=== PATIENT | female | born 1975 | race Caucasian/White ===

== ENCOUNTER 2020-06-17 06:08 | Emergency (ER) | payer MEDICAID ==
[~2020-06-17] VITALS: Ht 167.6 cm; Wt 75.0 kg
[2020-06-17] MEDS ORDERED: LISI-600 PO (07:48)
[2020-06-17] MEDS ORDERED: QUET25TA PO (07:48)
[2020-06-17] MEDS ORDERED: GABA800T11 PO (07:48)
[2020-06-17] MEDS ORDERED: IBUP-1985 PO (07:48)
[2020-06-17] MEDS ORDERED: ESCI10TA PO (07:48)
[2020-06-17] MEDS ORDERED: AMLO5TAB PO (07:48)
[2020-06-17] MEDS ORDERED: POTA20TA19 PO (07:48)
[2020-06-17] MEDS ORDERED: ESCI20TA PO (07:48)
[2020-06-17] MEDS ORDERED: FURO-150 PO (07:48)
[2020-06-17 07:57] LABS: EOSINOPHILS # (AUTO) 0.3 X10'3 (0-0.9); HEMOGLOBIN 13.9 g/dl (12.0-16.0); RED BLOOD COUNT 4.47 X10'6 (4.20-5.60)
[2020-06-17 07:58] LABS: URINE HCG NEGATIVE (NEG)
[2020-06-17 07:58] LABS: BASOPHILS # (AUTO) 0.1 X10'3 (0-0.2); BASOPHILS % (AUTO) 0.8 % (0-1); EOSINOPHILS % (AUTO) 3.6 % (0-6); HEMATOCRIT 40.6 % (35.0-45.0); LYMPHOCYTES # (AUTO) 2.2 X10'3 (1.1-4.8); LYMPHOCYTES % (AUTO) 26.8 % (21-51); MEAN CORPUSCULAR HGB CONC 34.1 g/dL (33.0-36.5); MEAN CORPUSCULAR VOLUME 90.7 FL (78-98); MEAN PLATELET VOLUME 8.4 FL (7.4-10.4); MONOCYTES # (AUTO) 0.8 X10'3 (0-0.9); MONOCYTES % (AUTO) 9.5 % (2-12); NEUTROPHILS # (AUTO) 4.9 X10'3 (1.8-7.7); NEUTROPHILS % (AUTO) 59.3 % (42-75); PLATELET COUNT 371 X10'3 (140-440); RED CELL DISTRIBUTION WIDTH 13.2 % (11.5-14.5); WHITE BLOOD COUNT 8.2 X10'3 (4.5-11.0)
--- NOTE | 2020-06-17 07:59 | NUR ---
breaking primary RN, pt is asleep, no needs at this time, caregiver present Addendum: 06/17/20 at 0801 by [email or web address] *mother present
[2020-06-17 08:04] LABS: CLARITY,URINE CLEAR (Clear); COLOR,URINE YELLOW (Yellow); GLUCOSE, URINE NEGATIVE (Neg); KETONES,URINE NEGATIVE (Neg); LEUKOCYTE ESTERASE ,URINE NEGATIVE (Neg); NITRITES, URINE NEGATIVE (Neg); OCCULT BLOOD,URINE NEGATIVE (Neg); PROTEIN,URINE NEGATIVE (Neg); UROBILINOGEN,URINE 0.2 E.U/dL (0.2-1.0)
[2020-06-17 08:11] LABS: URINE AMPHETAMINE SCREEN POSITIVE (Neg); URINE BARBITUATE SCREEN NEGATIVE (Neg); URINE BENZODIAZEPINES SCREEN NEGATIVE (Neg); URINE CANNABINOID SCREEN POSITIVE (Neg); URINE COCAINE SCREEN NEGATIVE (Neg); URINE METHADONE SCREEN NEGATIVE (Neg); URINE OPIATE SCREEN NEGATIVE (Neg); URINE PHENCYCLIDINE SCREEN NEGATIVE (Neg)
[2020-06-17 08:12] LABS: UA COLLECTION TYPE NON-SPECIFIED
[2020-06-17 08:16] LABS: ALANINE AMINOTRANSFERASE 21 U/L (12-78); ALBUMIN 3.7 G/DL (3.4-5.0); ALKALINE PHOSPHATASE 76 IU/L (46-116); ASPARTATE AMINO TRANSFERASE 13 U/L (10-37); BILIRUBIN,TOTAL 0.3 MG/DL (0.1-1.0); BLOOD UREA NITROGEN 13 MG/DL (7-18); CALCIUM 8.8 MG/DL (8.5-10.1); CREATININE 0.81 MG/DL (0.40-0.90); ETHANOL < 0.010 GM/DL (0.0-0.010); GLUCOSE 99 MG/DL (70-104); TOTAL CARBON DIOXIDE 31.9 MMOL/L (24-32); TOTAL PROTEIN 7.5 G/DL (6.4-8.2); eGFR 77 ML/MIN
[2020-06-17 08:25] LABS: ANION GAP 5 (8-16); CHLORIDE 103 MMOL/L (99-107); POTASSIUM 3.4 MMOL/L (3.5-5.1); SODIUM 140 MMOL/L (135-145)
[2020-06-17] MEDS ORDERED: acetaminophen 325mg tablet PO ONE (09:00)
--- NOTE | 2020-06-17 09:29 | NUR ---
Brought Tylenol for patient's CARR, states CARR went away. Resting in bed with eyes closed
[2020-06-17] MEDS ORDERED: TRAZ-251 PO (10:12)
[2020-06-17] MEDS ORDERED: BUSP5TAB3 PO (10:12)
[2020-06-17 10:26] VITALS: BP 117/86
== END 2020-06-17 10:28 | disposition home or self-care (01) ==
LOC: ER 06:09
DX: F41.9 Anxiety disorder, unspecified (principal); R44.0 Auditory hallucinations; Z88.8 Allergy status to other drugs, medicaments and biological substances; Z79.899 Other long term (current) drug therapy
CPT/HCPCS: 36415; 80053; 80305; 80320; 81003; 81025; 84443; 85025; 99285

== ENCOUNTER 2020-07-02 23:18 | Emergency (ER) | payer MEDICAID ==
[~2020-07-02] VITALS: Ht 167.6 cm; Wt 72.0 kg
[~2020-07-02 23:18] MED LIST: AMLO5TAB PO; BUSP5TAB3 PO; ESCI10TA PO; ESCI20TA PO; FURO-150 PO; GABA800T11 PO; IBUP-1985 PO; LISI-600 PO; POTA20TA19 PO; QUET25TA PO; TRAZ-251 PO
--- NOTE | 2020-07-02 23:33 | NUR ---
pain right ankle was seen at [facility] dorsal tenderness. expresses anxiety and paranoia to
[2020-07-02 23:51] LABS: BASOPHILS # (AUTO) 0.1 X10'3 (0-0.2); EOSINOPHILS # (AUTO) 0.2 X10'3 (0-0.9); EOSINOPHILS % (AUTO) 2.5 % (0-6); HEMATOCRIT 44.2 % (35.0-45.0); HEMOGLOBIN 14.7 g/dl (12.0-16.0); LYMPHOCYTES # (AUTO) 2.3 X10'3 (1.1-4.8); LYMPHOCYTES % (AUTO) 29.2 % (21-51); MEAN CORPUSCULAR HEMOGLOBIN 29.9 PG (27.0-31.0); MEAN CORPUSCULAR HGB CONC 33.4 g/dL (33.0-36.5); MEAN CORPUSCULAR VOLUME 89.5 FL (78-98); MEAN PLATELET VOLUME 8.6 FL (7.4-10.4); MONOCYTES # (AUTO) 0.8 X10'3 (0-0.9); MONOCYTES % (AUTO) 9.7 % (2-12); NEUTROPHILS # (AUTO) 4.6 X10'3 (1.8-7.7); NEUTROPHILS % (AUTO) 57.6 % (42-75); PLATELET COUNT 387 X10'3 (140-440); RED BLOOD COUNT 4.93 X10'6 (4.20-5.60); RED CELL DISTRIBUTION WIDTH 13.1 % (11.5-14.5)
--- NOTE | 2020-07-02 23:56 | NUR ---
Pt in green scrubs. All belongings given to patients mother. UA obtained and sent to lab.
[2020-07-03] VITALS: BP_DIAS 78
[2020-07-03 00:03] LABS: ALANINE AMINOTRANSFERASE 19 U/L (12-78); ALBUMIN/GLOBULIN RATIO 1.1 (1.1-1.5); ALKALINE PHOSPHATASE 94 IU/L (46-116); ANION GAP 9 (8-16); ASPARTATE AMINO TRANSFERASE 15 U/L (10-37); BILIRUBIN,TOTAL 0.6 MG/DL (0.1-1.0); BLOOD UREA NITROGEN 16 MG/DL (7-18); BUN/CREATININE RATIO 16.2 (6.6-38.0); CALCIUM 8.7 MG/DL (8.5-10.1); CHLORIDE 100 MMOL/L (99-107); CREATININE 0.99 MG/DL (0.40-0.90); ETHANOL < 0.010 GM/DL (0.0-0.010); GLUCOSE 95 MG/DL (70-104); POTASSIUM 3.4 MMOL/L (3.5-5.1); SODIUM 137 MMOL/L (135-145); TOTAL CARBON DIOXIDE 27.9 MMOL/L (24-32); TOTAL PROTEIN 7.8 G/DL (6.4-8.2); eGFR 61 ML/MIN
[2020-07-03 00:24] LABS: URINE HCG NEGATIVE (NEG)
[2020-07-03 00:34] LABS: URINE AMPHETAMINE SCREEN POSITIVE (Neg); URINE BARBITUATE SCREEN NEGATIVE (Neg); URINE BENZODIAZEPINES SCREEN NEGATIVE (Neg); URINE CANNABINOID SCREEN POSITIVE (Neg); URINE COCAINE SCREEN NEGATIVE (Neg); URINE METHADONE SCREEN NEGATIVE (Neg); URINE OPIATE SCREEN NEGATIVE (Neg); URINE PHENCYCLIDINE SCREEN NEGATIVE (Neg)
--- NOTE | 2020-07-03 06:10 | NUR ---
AWAKE EATING SANDWICH MED REC SENT TO LAB
--- NOTE | 2020-07-03 06:12 | NUR ---
[facility] REC FAXED TO [facility]
--- NOTE | 2020-07-03 06:57 | NUR ---
PT SLEEPING IN BED ,NO DISTRESS NOTED ,RR WNL ,WILL CONT TO MONITOR.
[2020-07-03 08:00] VITALS: BP_SYST 96
[2020-07-03] MEDS ORDERED: amLODIPine 5mg tablet PO SCH (08:00)
[2020-07-03] MEDS ORDERED: furosemide 20MG tablet PO SCH (08:00)
[2020-07-03] MEDS ORDERED: potassium Cl 20 mEq SR tablet PO SCH (08:00)
[2020-07-03] MEDS ORDERED: ibuprofen 200mg tablet PO SCH (08:00)
[2020-07-03] MEDS ORDERED: lisinopril 20mg tablet PO SCH (08:00)
--- NOTE | 2020-07-03 08:02 | NUR ---
PT MOM ATTILA CALLED TO CHECK STATUS ON PT AND STATED THAT IF SHE CAN COME TO ER TO CHECK ON PT ,INFOMRMED THAT WE ARE NOT ALLOWING ANY VISITORS.MOTHER VERBALIZED UNDERSTANDING .
[2020-07-03] MEDS: gabapentin 400mg capsule PO SCH ×2 (09:50→16:59)
--- NOTE | 2020-07-03 10:51 | NUR ---
[facility] EVAL BEHZAD AT BEDSIDE ,NO DISTRESS NOTED WILL CONT TO MONITOR.
--- NOTE | 2020-07-03 12:36 | NUR ---
PT UP TO USE RESTROOM WITH ASSISTANCE WITH HER CANE.
--- NOTE | 2020-07-03 14:58 | NUR ---
spoke to [facility] regarding pt update as pt was evaluated by the [facility] eval and need psychiatrist consultation needed .as per [facility] employee "will send geraldo to check pt".
--- NOTE | 2020-07-03 16:45 | NUR ---
called paulina mother of pt to moss picker pt ,as per mother she will be here in 30 mins.
--- NOTE | 2020-07-03 16:50 | NUR ---
spoke to dr meyers about pt d/c status as per md pt has to be seen by psychiatrist first before d/c.called pt mom paulina to notified that pt is not getting released yet.will call when we have an update on pt status.
--- NOTE | 2020-07-03 18:16 | NUR ---
CALLED PT MOTHER ATTILA TO COMPLIANCE OFFICER PT ,MOTHER STATED THAT SHE WILL BE THERE IN 30 MINS.
== END 2020-07-03 18:52 | disposition home or self-care (01) ==
LOC: ER 23:20
DX: F29 Unspecified psychosis not due to a substance or known physiological condition (principal); F41.9 Anxiety disorder, unspecified; F22 Delusional disorders; M25.571 Pain in right ankle and joints of right foot; I10 Essential (primary) hypertension; J45.909 Unspecified asthma, uncomplicated; Z86.73 Personal history of transient ischemic attack (TIA), and cerebral infarction without residual deficits; Z98.890 Other specified postprocedural states; Z88.5 Allergy status to narcotic agent; Z79.899 Other long term (current) drug therapy
CPT/HCPCS: 36415; 73630; 80053; 80305; 80320; 81025; 85025; 99284

== ENCOUNTER 2020-07-04 15:04 | Emergency (ER) | payer MEDICAID ==
[~2020-07-04] VITALS: Ht 167.6 cm; Wt 74.2 kg
[~2020-07-04 15:04] MED LIST changes: -ESCI10TA PO; -ESCI20TA PO; -QUET25TA PO
[2020-07-04 16:07] VITALS: BP 122/69
--- NOTE | 2020-07-04 17:51 | NUR ---
PA advised cell maker not to change pt. into greens due to low risk situation
== END 2020-07-04 20:05 | disposition home or self-care (01) ==
LOC: ER 15:04
DX: F22 Delusional disorders (principal); F41.9 Anxiety disorder, unspecified; J45.909 Unspecified asthma, uncomplicated; I10 Essential (primary) hypertension; I63.9 Cerebral infarction, unspecified; Z98.890 Other specified postprocedural states; Z88.5 Allergy status to narcotic agent; Z79.899 Other long term (current) drug therapy; Z79.1 Long term (current) use of non-steroidal anti-inflammatories (NSAID)
CPT/HCPCS: 99281